=== PATIENT | female | born 1990 | race African-American/Black ===

== ENCOUNTER 2019-02-14 11:33 | Emergency (ER) | payer BC ==
[~2019-02-14] VITALS: Ht 162.6 cm; Wt 56.7 kg
[2019-02-14 11:50] VITALS: Ht 162.6 cm; Wt 56.7 kg
[2019-02-14 14:02] LABS: UA SPECIFIC GRAVITY 1.025 (1.005-1.035); microscopic required? YES; urine erythrocyte 3+ (NEGATIVE)
[2019-02-14 17:12] VITALS: BP 105/62
== END 2019-02-14 17:12 | disposition home or self-care (01) ==
LOC: ED 11:33
PROVIDERS: Emergency Medicine
DX: N94.6 Dysmenorrhea, unspecified (principal)